=== PATIENT | female | born 1965 | race Two or more races ===

== ENCOUNTER 2024-09-08 14:25 | Inpatient (IN) | payer MEDICAID, OTHER ==
[~2024-09-08] VITALS: Ht 165.1 cm; Wt 70.6 kg
--- NOTE | 2024-09-08 15:08 | ED.PDOC ---
GI ASSESSMENT HPI Comments 59 y.o female with PMHx of HTN and DM, presents to the ED for a chief complaint of nausea, vomiting, diarrhea, chills and abdominal pain that started 1 week ago. Patient reports pain presents s/p eating and diffused throughout her abdomen. Patient also reports multiple episodes of diarrhea with no bleeding noted. She denies fever, dysuria, hematuria. Chief Complaint: Nausea/Vomiting Time Seen by MD: 14:55 Primary Care Provider: UNKNOWN Reviewed Notes: Nurses Notes, Medications, Allergies Allergies: Coded Allergies: NO KNOWN ALLERGIES (Unverified , 09/08/24) Information Source: Patient Mode of Arrival: Ambulatory Timing: Weeks (1) Duration: Since onset Quality: Sharp Vomitus: Hard Stool: Loose Severity: Moderate Recent: None Recent Hx of: None Pain Location: Diffuse Modifying Factors: Nothing Associated sign and symptoms: Nausea, Vomiting, Diarrhea, Abdominal Pain Past Medical History PAST MEDICAL HISTORY: Cancer, DM, HTN Surgical History: Cholecystectomy, , Tubal Ligation Surgical History (Other): back Family History Family History: Family hx of DM, Family hx of Cancer Social History Smoker: Non-Smoker Alcohol: Occasionally Drugs: Denies Drug Use Lives In: Home Constitutional: reports: chills; denies: diaphoresis, fatigue, fever, malaise, sweats, weakness, others EENTM: denies: blurred vision, double vision, ear bleeding, ear discharge, ear drainage, ear pain, ear ringing, eye pain, eye redness, hearing loss, mouth pain, mouth swelling, nasal discharge, nose bleeding, nose congestion, nose pain, photophobia, tearing, throat pain, throat swelling, voice changes, others Respiratory: denies: cough, hemoptysis, orthopnea, SOB at rest, shortness of breath, SOB with excertion, stridor, wheezing, others Cardiovascular: denies: chest pain, dizzy spells, diaphoresis, Dyspnea on exertion, edema, irregular heart beat, left arm pain, lightheadedness, palpitations, PND, syncope, others Gastrointestinal: reports: abdominal pain, diarrhea, nausea, vomiting; denies: abdomen distended, blood streaked bowels, constipated, dysphagia, difficulty sw allowing, hematemesis, melena, poor appetite, poor fluid intake, rectal bleeding, rectal pain, others Genitourinary: denies: abnormal vagina bleeding, burning, dyspareunia, dysuria, flank pain, frequency, hematuria, incontinence, pain, , vagina discharge, urgency, others Neurological: denies: dizziness, fainting, headache, left sided numbness, left sided weakness, numbness, paresthesia, pre-existing deficit, right sided numbness, right sided weakness, seizure, speech problems, tingling, tremors, weakness, others Musculoskeletal: denies: back pain, gout, joint pain, joint swelling, muscle pain, muscle stiffness, neck pain, others Integumetry: denies: bruises, change in color, change in hair/nails, dryness, laceration, lesions, lumps, rash, wounds, others Allergic/Immunocompromised: denies: Difficulty Healing, Frequent Infections, Hives, Itching, others Hematologic/Lymphatic: denies: anemia, blood clots, easy bleeding, easy bruising, swollen glands, others Endocrine: denies: excessive hunger, excessive sweating, excessive thirst, excessive urination, flushing, intolerance to cold, intolerance to heat, u nexplained weight gain, unexplained weight loss, others Psychiatric: denies: anxiety, bipolar disorder, depression, hopeless, panic disorder, schizophrenia, sleepless, suicidal, others All Other Systems: Reviewed and Negative Physical Exam General Appearance: Moderate Distress HEENT: Normal ENT Inspection, Pharynx Normal, TMs Normal Neck: Full Range of Motion, Non-Tender, Normal, Normal Inspection Respiratory: Chest Non-Tender, Lungs Clear, No Accessory Muscle Use, No Respiratory Distress, Normal Breath Sounds Cardiovascular: No Edema, No JVD, No Murmur, No Gallop, Normal Peripheral Pulses, Regular Rate/Rhythm Breast Exam: Deferred Gastrointestinal: Diffuse, No Organomegaly, No Pulsatile Mass, Normal Bowel Sounds, Soft, Tenderness Genitalia: Deferred Pelvic: Deferred Rectal: Deferred Extremities: No calf tenderness, Normal capillary refill, No pedal edema Musculoskeletal : Apperance: Normal Neurologic: Alert, 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 Was a procedure done?: No GI differential Dx Differential Diagnosis: Esophagitis, Gastroenteritis, Electrolyte Imbalance, Food Poisoning, Viral X-Ray, Labs, Meds, VS Vital Signs Date Time Temp Pulse Resp B/P (MAP) Pulse Ox O2 Delivery O2 Flow Rate FiO2 09/08/24 16:48 98.3 62 18 138/72 (94) 98 98.3 09/08/24 16:48 62 18 98 Room Air 09/08/24 14:38 97.6 74 16 153/55 (87) 99 97.6 Lab Test 09/08/24 15:08 09/08/24 14:45 Range/Units White Blood Count 6.0 4.4-10.8 10^3/uL Red Blood Count 4.80 4.0-5.20 10^6/uL Hemoglobin 14.9 12.2-16.2 g/dL Hematocrit 42.6 36.0-46.0 % Mean Corpuscular Volume 88.7 80.0-100.0 fL Mean Corpuscular Hemoglobin 31.0 28.0-32.0 pg Mean Corpuscular Hemoglobin Concent 34.9 32.0-36.0 g/dL Red Cell Distribution Width 13.0 11.8-14.3 % Platelet Count 215 140-450 10^3/uL Mean Platelet Volume 9.0 6.9-10.8 fL Neutrophils (%) (Auto) 58.5 37.0-80.0 % Lymphocytes (%) (Auto) 32.9 10.0-50.0 % Monocytes (%) (Auto) 6.0 0.0-12.0 % Eosinophils (%) (Auto) 1.7 0.0-7.0 % Basophils (%) (Auto) 0.9 0.0-2.0 % Neutrophils # (Auto) 3.5 1.6-8.6 10 ^3/uL Lymphocytes # (Auto) 2.0 0.4-5.4 10 ^3/uL Monocytes # (Auto) 0.4 0-1.3 10 ^3/uL Eosinophils # (Auto) 0.1 0-0.8 10 ^3/uL Basophils # (Auto) 0.1 0-0.2 10 ^3/uL Nucleated Red Blood Cells 0.1 % Sodium Level 140 136-145 mmol/L Potassium Level 3.8 3.5-5.1 mmol/L Chloride Level 108 H 98-107 mmol/L Carbon Dioxide Level 27 20-31 mmol/L Anion Gap 5 5-15 Blood Urea Nitrogen 7 L 9-23 mg/dL Creatinine 0.72 0.550-1.02 mg/dL Glomerular Filtration Rate Calc 96 >90 mL/min BUN/Creatinine Ratio 9.7 L 10.0-20.0 Serum Glucose 135 H 74-106 mg/dL Calcium Level 9.6 8.7-10.4 mg/dL Total Bilirubin 0.3 0.2-1.0 mg/dL Aspartate Amino Transferase (AST) 20 13-40 U/L Alanine Aminotransferase (ALT) 14 7-40 U/L Alkaline Phosphatase 88 46-116 U/L Total Protein 6.7 5.7-8.2 g/dL Albumin 4.3 3.2-4.8 g/dL Urine Color Yellow Yellow Urine Clarity Turbid H Clear Urine pH 6.0 5.0-9.0 Urine Specific [place] 1.020 1.001-1.035 Urine Protein Negative Negative Urine Ketones Negative Negative Urine Blood Trace H Negative /uL Urine Nitrite Negative Negative Urine Bilirubin Negative Negative Urine Urobilinogen 4 H Negative mg/dL Urine Leukocyte Esterase Trace Negative /uL Urine RBC 8 0 - 4 /hpf Urine Microscopic WBC 6 H 0-5 /HPF Urine Squamous Epithelial Cells Mod <5 /hpf Urine Bacteria Few H None Seen /hpf Urine Glucose Normal Normal mg/dL Exam: CT CT AB PEL WO CON-NO ORAL OR IV. IMPRESSION: No acute abdominal or pelvic findings. The patient's urine test is positive for some white cells The patient's CBC is within normal limits The chemistry panel is within normal limits At this time, the patient is being admitted An IV Hep-Lock was established The patient is being given morphine 4 mg IV push for the pain The patient is given Zofran 4 mg IV push for the nausea Images Reviewed?: Images reviewed and evaluated by me Time of 1ST Reevaluation: 15:02 Reevaluation 1ST: Unchanged Patient Education/Counseling: Diagnosis, Treatment, Prognosis Family Education/Counseling: No Family Present SEPSIS Sepsis Screen Date sepsis recognized/suspect: Sep 08, 2024 Time Sepsis recognized/suspect: 1423 Recent Procedure: No On Antibiotic Therapy: No Respiratory Rate >20: No Heart Rate >90: No Temp<36 C (96.8 F) or >38.3 C: No SBP <90 or MAP <65 mmHG: No New Acute Mental Status Change: No Is the patient on CPAP, BIPAP,: No Physician Orders Heplock Iv (09/08/24 14:58) Ct Ab Pel Wo Con-No Oral Or Iv (09/08/24 14:58) Vital Signs Date Time Temp Pulse Resp B/P (MAP) Pulse Ox O2 Delivery O2 Flow Rate FiO2 09/08/24 16:48 98.3 62 18 138/72 (94) 98 98.3 09/08/24 16:48 62 18 98 Room Air 09/08/24 14:38 97.6 74 16 153/55 (87) 99 97.6 Laboratory Tests Test 09/08/24 15:08 White Blood Count 6.0 10^3/uL (4.4-10.8) Departure 1 Departure Time of Disposition: 18:47 Impression: Primary Impression: Intractable abdominal pain Disposition: ADMITTED INPATIENT Admit to: Med Surg Condition: Fair Critical Care Note Critical Care Time?: No Stability Stability form required: Yes Unstable for transfer: ED Physician Assesment (Clinical assesment) I personally scribed for JULIUS LEUNG MD ([email or web address]) on 09/08/24 at 15:08. El ectronically submitted by Claribel Rivas ([facility]). I personally scribed for JULIUS LEUNG MD ([email or web address]) on 09/08/24 at 16:47. Lynne ctronically submitted by Claribel Rivas ([facility]). JULIUS LUENG MD Sep 08, 2024 15:08
[2024-09-08 15:15] LABS: Hematocrit 42.6 % (36.0-46.0); Hemoglobin 14.9 g/dL (12.2-16.2); Mean Corpuscular Hemoglobin 31.0 pg (28.0-32.0); Mean Corpuscular Volume 88.7 fL (80.0-100.0); Nucleated Red Blood Cells % 0.1 %
[2024-09-08 15:31] LABS: Urine Protein, UAD Negative (Negative)
[2024-09-08 15:33] LABS: Alanine Aminotransferase 14 U/L (7-40); Albumin 4.3 g/dL (3.2-4.8); Alkaline Phosphatase 88 U/L (46-116); Anion Gap 5 (5-15); BUN/Creatinine Ratio 9.7 (10.0-20.0); Bilirubin, Total 0.3 mg/dL (0.2-1.0); Calcium 9.6 mg/dL (8.7-10.4); Carbon Dioxide 27 mmol/L (20-31); Potassium 3.8 mmol/L (3.5-5.1); Sodium 140 mmol/L (136-145); Total Protein 6.7 g/dL (5.7-8.2)
[2024-09-08 15:34] LABS: Blood Urea Nitrogen 7 mg/dL (9-23); Chloride 108 mmol/L (98-107); Glucose 135 mg/dL (74-106)
--- NOTE | 2024-09-08 16:24 | DVH ---
Exam: CT CT AB PEL WO CON-NO ORAL OR IV History: pain Comparison Study: None Technique: Multidetector spiral CT of the abdomen was performed from lung bases to pubic symphysis. I maging was performed without IV contrast. Axial, coronal and sagittal multiplanar reformats were obta ined from the axial data set by the technologist. Radiation Dose : 1. Abdomen/Pelvis: CTDIvol 7.6 mGy, DLP 378.2 mGy*cm. Findings: Evaluation of solid organs is limited due to lack of intravenous contrast use. Lung Bases: No acute or significant lung base finding. Normal heart size. No pleural or pericardial effusion. Liver: Borderline hepatomegaly. Gallbladder and Biliary Tree: Unremarkable Spleen: Unremarkable Pancreas: The pancreas is grossly normal in appearance. Adrenal Glands: Unremarkable Kidneys: Kidneys are grossly normal without calculi or hydronephrosis. Bladder: Grossly unremarkable for degree of distention. Bowel: The stomach is grossly normal in appearance. Diverticulosis. Normal appendix is visualized in the right lower quadrant without findings of appendicitis. Ascites: Absent Lymphadenopathy: No mesenteric, retroperitoneal or periportal lymphadenopathy. Abdominal Wall and Mesentery: Unremarkable. Vasculature: The visualized abdominal aorta is normal in size and caliber. Evaluation of abdominal a nd pelvic vessels is limited due to lack of intravenous contrast. Pelvic Organs: Unremarkable Musculoskeletal: No aggressive focal bony lesions, acute fractures or dislocation. Degenerative degroot es of the spine. IMPRESSION: No acute abdominal or pelvic findings. Radiation optimization: All CT scans at this facility use at least one of these dose optimization nish hniques: automated exposure control mA and/or kV adjustment per patient size (includes targeted exam s where dose is matched to clinical indication) or iterative reconstruction.
[2024-09-08] MEDS ORDERED: LOPERAMIDE HCL 2 MG CAP/TAB PO PRN (19:15)
[2024-09-08] MEDS ORDERED: MORPHINE SULFATE INJ 2 MG/ml SYRG IV PRN (19:15)
[2024-09-08] MEDS ORDERED: ONDANSETRON HCL 4 MG/2 ML VIAL IV PRN ×2 (19:15)
[2024-09-08] MEDS ORDERED: ACETAMINOPHEN 325 MG TAB PO PRN (19:15)
[2024-09-08] MEDS ORDERED: HYDROcodone-ACET 5/325MG TAB PO PRN (19:15)
[2024-09-08] MEDS ORDERED: DEXTROSE (50%) 50ML SYRG IV PRN (19:15)
--- NOTE | 2024-09-08 21:45 | DVHHP2 ---
History of Present Illness Reason for Visit: Abdominal pain History of Present Illness 59-year-old female presents for evaluation of abdominal pain. Patient endorses a one-week history of epigastric/center cramping that has gotten worse over the past couple of days. She reports nausea with vomiting and occasional episodes of diarrhea. She states symptoms becomes worse when eating. No other acute complaints reported. Past Medical History Hypertension, diabetes mellitus, cancer Past Surgical History , tubal ligation, cholecystectomy Family History Diabetes mellitus and cancer Smoke: No ALCOHOL: occassional Drugs: None Lives: with Family Review of Systems Review of Systems Review of systems are currently negative otherwise addressed in HPI. Allergies: Coded Allergies: NO KNOWN ALLERGIES (Unverified , 09/08/24) Medications Current Medications Medications Dose Ordered Sig/Shruthi Route Start Time Stop Time Status Last Admin Dose Admin Pantoprazole Sodium 40 mg DAILY IV 09/09/24 10:00 Loperamide HCl 2 mg PRN PRN PO 09/08/24 19:15 Atorvastatin Calcium 40 mg HS PO 09/08/24 22:00 Gabapentin 800 mg BID PO 09/08/24 22:00 Diagnostic Test (Pha) 1 strip Q6HR 09/09/24 00:00 Insulin Human Regular Q6HR SC 09/09/24 00:00 Dextrose 50 ml UD PRN IV 09/08/24 19:15 Acetaminophen/ Hydrocodone Bitart 1 tab Q4HP PRN PO 09/08/24 19:15 Ondansetron HCl 4 mg Q4HP PRN IV 09/08/24 19:15 Acetaminophen 650 mg Q6HP PRN PO 09/08/24 19:15 Morphine Sulfate 2 mg Q6HPRN PRN IV 09/08/24 19:15 Exam Vital Signs Vital Signs Date Time Temp Pulse Resp B/P (MAP) Pulse Ox O2 Delivery O2 Flow Rate FiO2 09/08/24 16:48 98.3 62 18 138/72 (94) 98 98.3 09/08/24 16:48 Room Air Exam Gen: 59-year-old female in mild distress Skin: Warm, dry, normal color and texture, no rash. HEENT: Normocephalic atraumatic, mucous membranes moist and pink. Neck: Cervical and supraclavicular nodes normal without enlargement, trachea is midline, thyroid gland is normal without masses. Pulmonary: Clear to auscultation and percussion bilaterally. Cardiac: Regular rate and rhythm. No murmur Abdomen: Soft, nontender, nondistended, bowel sounds present all 4 quadrants, no guarding, no rigidity, no organomegaly. Extremities: No cyanosis, clubbing, no edema Neuro: Cranial nerves II through XII grossly intact, normal affect and speech, no focal motor deficits. Labs/Xrays ORDERING PHYSICIAN: JULIUS LEUNG MD PROCEDURE(s): ABPL - CT AB PEL WO CON-NO ORAL OR IV REASON: pain ORDER NUMBER(s): [id number], ACCESSION NUMBER(s): [id number] Exam: CT CT AB PEL WO CON-NO ORAL OR IV History: pain Comparison Study: None Technique: Multidetector spiral CT of the abdomen was performed from lung bases to pubic symphysis. Imaging was performed without IV contrast. Axial, coronal and sagittal multiplanar reformats were obtained from the axial data set by the technologist. Radiation Dose : 1. Abdomen/Pelvis: CTDIvol 7.6 mGy, DLP 378.2 mGy*cm. Findings: Evaluation of solid organs is limited due to lack of intravenous contrast use. Lung Bases: No acute or significant lung base finding. Normal heart size. No pleural or pericardial effusion. Liver: Borderline hepatomegaly. Gallbladder and Biliary Tree: Unremarkable Spleen: Unremarkable Pancreas: The pancreas is grossly normal in appearance. Adrenal Glands: Unremarkable Kidneys: Kidneys are grossly normal without calculi or hydronephrosis. Bladder: Grossly unremarkable for degree of distention. Bowel: The stomach is grossly normal in appearance. Diverticulosis. Normal appendix is visualized in the right lower quadrant without findings of appendicitis. Ascites: Absent Lymphadenopathy: No mesenteric, retroperitoneal or periportal lymphadenopathy. Abdominal Wall and Mesentery: Unremarkable. Vasculature: The visualized abdominal aorta is normal in size and caliber. Evaluation of abdominal and pelvic vessels is limited due to lack of intravenous contrast. Pelvic Organs: Unremarkable Musculoskeletal: No aggressive focal bony lesions, acute fractures or dislocation. Degenerative changes of the spine. IMPRESSION: No acute abdominal or pelvic findings. Radiation optimization: All CT scans at this facility use at least one of these dose optimization techniques: automated exposure control mA and/or kV adjustment per patient size (includes targeted exams where dose is matched to clinical indication) or iterative reconstruction. ATED BY: JUAN JONES MD Labs Test 09/08/24 15:08 09/08/24 14:45 Range/Units White Blood Count 6.0 4.4-10.8 10^3/uL Red Blood Count 4.80 4.0-5.20 10^6/uL Hemoglobin 14.9 12.2-16.2 g/dL Hematocrit 42.6 36.0-46.0 % Mean Corpuscular Volume 88.7 80.0-100.0 fL Mean Corpuscular Hemoglobin 31.0 28.0-32.0 pg Mean Corpuscular Hemoglobin Concent 34.9 32.0-36.0 g/dL Red Cell Distribution Width 13.0 11.8-14.3 % Platelet Count 215 140-450 10^3/uL Mean Platelet Volume 9.0 6.9-10.8 fL Neutrophils (%) (Auto) 58.5 37.0-80.0 % Lymphocytes (%) (Auto) 32.9 10.0-50.0 % Monocytes (%) (Auto) 6.0 0.0-12.0 % Eosinophils (%) (Auto) 1.7 0.0-7.0 % Basophils (%) (Auto) 0.9 0.0-2.0 % Neutrophils # (Auto) 3.5 1.6-8.6 10 ^3/uL Lymphocytes # (Auto) 2.0 0.4-5.4 10 ^3/uL Monocytes # (Auto) 0.4 0-1.3 10 ^3/uL Eosinophils # (Auto) 0.1 0-0.8 10 ^3/uL Basophils # (Auto) 0.1 0-0.2 10 ^3/uL Nucleated Red Blood Cells 0.1 % Sodium Level 140 136-145 mmol/L Potassium Level 3.8 3.5-5.1 mmol/L Chloride Level 108 H 98-107 mmol/L Carbon Dioxide Level 27 20-31 mmol/L Anion Gap 5 5-15 Blood Urea Nitrogen 7 L 9-23 mg/dL Creatinine 0.72 0.550-1.02 mg/dL Glomerular Filtration Rate Calc 96 >90 mL/min BUN/Creatinine Ratio 9.7 L 10.0-20.0 Serum Glucose 135 H 74-106 mg/dL Calcium Level 9.6 8.7-10.4 mg/dL Total Bilirubin 0.3 0.2-1.0 mg/dL Aspartate Amino Transferase (AST) 20 13-40 U/L Alanine Aminotransferase (ALT) 14 7-40 U/L Alkaline Phosphatase 88 46-116 U/L Total Protein 6.7 5.7-8.2 g/dL Albumin 4.3 3.2-4.8 g/dL Urine Color Yellow Yellow Urine Clarity Turbid H Clear Urine pH 6.0 5.0-9.0 Urine Specific [place] 1.020 1.001-1.035 Urine Protein Negative Negative Urine Ketones Negative Negative Urine Blood Trace H Negative /uL Urine Nitrite Negative Negative Urine Bilirubin Negative Negative Urine Urobilinogen 4 H Negative mg/dL Urine Leukocyte Esterase Trace Negative /uL Urine RBC 8 0 - 4 /hpf Urine Microscopic WBC 6 H 0-5 /HPF Urine Squamous Epithelial Cells Mod <5 /hpf Urine Bacteria Few H None Seen /hpf Urine Glucose Normal Normal mg/dL SEPSIS Sepsis Screen Date sepsis recognized/suspect: Sep 08, 2024 Time Sepsis recognized/suspect: 1423 Recent Procedure: No On Antibiotic Therapy: No Respiratory Rate >20: No Heart Rate >90: No Temp<36 C (96.8 F) or >38.3 C: No SBP <90 or MAP <65 mmHG: No New Acute Mental Status Change: No Is the patient on CPAP, BIPAP,: No Physician Orders Heplock Iv (09/08/24 14:58) Ct Ab Pel Wo Con-No Oral Or Iv (09/08/24 14:58) Sodium Chloride 0.9% (09/08/24 19:15) Stool Bacterial Culture (09/08/24 19:05) Pantoprazole (Protonix) (09/09/24 10:00) Loperamide Capsule (Imodium Capsule) (09/08/24 19:15) Basic Metabolic Panel (09/09/24 04:00) Atorvastatin (Lipitor) (09/08/24 22:00) Gabapentin Capsule (Neurontin Capsule) (09/08/24 22:00) Glucose Blood (Accu-Chek Comfort Curve T (09/09/24 00:00) Insulin R (Human) (Insulin R) (09/09/24 00:00) Dextrose 50% Syringe (09/08/24 19:15) Admit (09/08/24 19:05) Hydrocodone-Acet 5/325mg Tab ([place] /32 (09/08/24 19:15) Ondansetron Hcl (Zofran) (09/08/24 19:15) Condition: Stable (09/08/24 19:05) Acetaminophen Tablet (Tylenol Tablet) (09/08/24 19:15) Clear Liq Diet (09/09/24 Breakfast) Bedrest With Bathroom Privileg (09/08/24 19:05) Morphine Sulfate Injection (09/08/24 19:15) Vital Signs Date Time Temp Pulse Resp B/P (MAP) Pulse Ox O2 Delivery O2 Flow Rate FiO2 09/08/24 16:48 98.3 62 18 138/72 (94) 98 98.3 09/08/24 16:48 62 18 98 Room Air 09/08/24 14:38 97.6 74 16 153/55 (87) 99 97.6 Laboratory Tests Test 09/08/24 15:08 White Blood Count 6.0 10^3/uL (4.4-10.8) Assessment/Plan Assessment/Plan Assessment Acute abdominal pain Possible gastroenteritis Diabetes mellitus Hypertension Plan Admit the patient to [facility] [place] to the hospitalist Clear liquid diet Maintenance IV fluids Pain management Continue treatment per orders. Plan discussed with: Patient My Orders Orders - RAN CAPUTO Procedure Category Date Status Time Sodium Chloride 0.9% PHA 09/08/24 In Process 19:15 Stool Bacterial DELVIN 09/08/24 Logged Culture 19:05 Pantoprazole PHA 09/09/24 In Process (Protonix) 10:00 Loperamide Capsule PHA 09/08/24 In Process (Imodium Capsule) 19:15 Basic Metabolic Panel LAB 09/09/24 Verified 04:00 Atorvastatin (Lipitor) PHA 09/08/24 In Process 22:00 Gabapentin Capsule PHA 09/08/24 In Process (Neurontin Capsule) 22:00 Glucose Blood PHA 09/09/24 In Process (Accu-Chek Comfort 00:00 Insulin R (Human) PHA 09/09/24 In Process (Insulin R) 00:00 Dextrose 50% Syringe PHA 09/08/24 In Process 19:15 Admit ADMIT 09/08/24 Transmitted 19:05 Hydrocodone-Acet PHA 09/08/24 In Process 5/325mg Tab ([place] 19:15 Ondansetron Hcl PHA 09/08/24 In Process (Zofran) 19:15 Condition: Stable PIO 09/08/24 In Process 19:05 Acetaminophen Tablet PHA 09/08/24 In Process (Tylenol Tablet) 19:15 Clear Liq Diet DIET 09/09/24 Transmitted Breakfast Bedrest With Bathroom PIO 09/08/24 In Process Privileg 19:05 Morphine Sulfate PHA 09/08/24 In Process Injection 19:15 Date of Service: Sep 08, 2024 Billing Provider: RAN CAPUTO Common Visit Codes: [id number] INP/OBS CARE (MOD) RAN CAPUTO Sep 08, 2024 21:45
[2024-09-08] MEDS: SODIUM CHLORIDE 0.9% 1,000 ML IV ONE (23:54)
[2024-09-09] VITALS (9 sets, daily range): BP systolic 111–141; BP diastolic 60–82; PULSE 57–75; RESP 14–18; TEMP 97.4–98.1; O2SAT 96–100
[2024-09-09] MEDS: ACCU-CHEK COMFORT CURVE STRIP VI SCH
[2024-09-09] MEDS: InsuLIN REG 1unit/0.01ml Soln (100units/ml) SC SCH
[2024-09-09] MEDS: ONDANSETRON HCL 4 MG/2 ML VIAL IV ONE (00:03)
[2024-09-09] MEDS: GABAPENTIN 400 MG CAP PO SCH (00:04)
[2024-09-09] MEDS: ATORVASTATIN 20 MG TAB PO SCH (00:04)
[2024-09-09] MEDS: SODIUM CHLORIDE 0.9% 1,000 ML IV ONE (00:30)
[2024-09-09] MEDS ORDERED: SIMV40TA18 PO (00:50)
[2024-09-09] MEDS ORDERED: GABA600T PO (00:50)
[2024-09-09] MEDS ORDERED: FAMO-68 PO (00:51)
[2024-09-09] MEDS ORDERED: TIZA4TAB9 PO (00:51)
[2024-09-09] MEDS ORDERED: OMEP20TA PO (00:51)
[2024-09-09] MEDS: PANTOPRAZOLE 40 MG/10 ML VIAL INJ IV SCH (09:51)
--- NOTE | 2024-09-09 11:57 | DVHPN2 ---
Progress Note Date Seen: Sep 09, 2024 Medical Necessity Reason Pt with a Central, PICC or Fol: No Subjective Patient reports: No new complaints Review of Systems: HEENT:Normal, CVS:Normal, RESPIRATORY:Normal, GI:Normal, :Normal, MSK:Normal, NEURO:Normal Objective vital signs Vital Sign Date Time Temp Pulse Resp B/P (MAP) Pulse Ox O2 Delivery O2 Flow Rate FiO2 09/09/24 09:00 97.4 63 16 137/71 (93) 97 97.4 09/09/24 00:25 Room Air* 0 21 Total Intake and Output 09/08/24 09/08/24 09/09/24 15:00 23:00 07:00 Intake Total 0 ml Balance 0 ml medications Current Medications Medications Dose Ordered Sig/Shruthi Route Start Time Stop Time Status Last Admin Dose Admin Pantoprazole Sodium 40 mg DAILY IV 09/09/24 10:00 09/09/24 09:51 40 MG Loperamide HCl 2 mg PRN PRN PO 09/08/24 19:15 Atorvastatin Calcium 40 mg HS PO 09/08/24 22:00 09/09/24 00:04 40 MG Gabapentin 800 mg BID PO 09/08/24 22:00 09/09/24 09:51 800 MG Diagnostic Test (Pha) 1 strip Q6HR 09/09/24 00:00 09/09/24 11:33 1 STRIP Insulin Human Regular Q6HR SC 09/09/24 00:00 Dextrose 50 ml UD PRN IV 09/08/24 19:15 Acetaminophen/ Hydrocodone Bitart 1 tab Q4HP PRN PO 09/08/24 19:15 Ondansetron HCl 4 mg Q4HP PRN IV 09/08/24 19:15 Acetaminophen 650 mg Q6HP PRN PO 09/08/24 19:15 Morphine Sulfate 2 mg Q6HPRN PRN IV 09/08/24 19:15 Examination: GENERAL:Normal, HEENT:Normal, NECK:Normal, LUNGS:Normal, CVS:Normal, ABDOMEN:Normal, MSK:Normal, SKIN:Normal, NEURO:Normal, :Normal laboratory and microbiology Laboratory Tests 09/08/24 15:08 Test 09/08/24 15:08 Range/Units Serum Glucose 135 H 74-106 mg/dL Problem List/Assessment/Plan Problem List/Assessment/Plan #1 abd pain ? acute ge: advance diet, ivf #2 back pain Plan discussed with: Patient Date of Service: Sep 09, 2024 Billing Provider: RAN THAKUR MD Common Visit Codes: [id number] INP/OBS CARE(HIGH) RAN THAKUR MD Sep 09, 2024 11:57
[2024-09-10 01:00] VITALS: BP 146/53; PULSE 60; RESP 14; TEMP 97.9; O2SAT 99
[2024-09-10 05:00] VITALS: BP 140/85; PULSE 59; RESP 14; TEMP 97.9; O2SAT 96
[2024-09-10 07:32] LABS: Anion Gap 9 (5-15); Carbon Dioxide 30 mmol/L (20-31); Chloride 104 mmol/L (98-107); Potassium 3.8 mmol/L (3.5-5.1); Sodium 143 mmol/L (136-145)
[2024-09-10 07:33] LABS: Calcium 9.6 mg/dL (8.7-10.4)
[2024-09-10 07:38] LABS: BUN/Creatinine Ratio 12.7 (10.0-20.0); Blood Urea Nitrogen 9 mg/dL (9-23); Glucose 92 mg/dL (74-106)
[2024-09-10 08:03] LABS: Hematocrit 42.9 % (36.0-46.0); Hemoglobin 14.7 g/dL (12.2-16.2); Mean Corpuscular Hemoglobin 29.9 pg (28.0-32.0); Mean Corpuscular Volume 87.1 fL (80.0-100.0); Nucleated Red Blood Cells % 0.1 %
[2024-09-10 08:39] VITALS: BP 144/79; PULSE 65; RESP 18; TEMP 98.4; O2SAT 98
--- NOTE | 2024-09-10 11:55 | DVHDS2 ---
Discharge Summary Date of Admission Sep 08, 2024 at 19:05 Date of Discharge: Sep 10, 2024 Labs/Diagnostic Data: Laboratory Results Test 09/10/24 06:05 09/09/24 11:31 09/08/24 15:08 09/08/24 14:45 White Blood Count 5.6 10^3/uL (4.4-10.8) Red Blood Count 4.92 10^6/uL (4.0-5.20) Hemoglobin 14.7 g/dL (12.2-16.2) Hematocrit 42.9 % (36.0-46.0) Mean Corpuscular Volume 87.1 fL (80.0-100.0) Mean Corpuscular Hemoglobin 29.9 pg (28.0-32.0) Mean Corpuscular Hemoglobin Concent 34.3 g/dL (32.0-36.0) Red Cell Distribution Width 12.9 % (11.8-14.3) Platelet Count 213 10^3/uL (140-450) Mean Platelet Volume 9.6 fL (6.9-10.8) Neutrophils (%) (Auto) 58.0 % (37.0-80.0) Lymphocytes (%) (Auto) 33.0 % (10.0-50.0) Monocytes (%) (Auto) 7.1 % (0.0-12.0) Eosinophils (%) (Auto) 1.3 % (0.0-7.0) Basophils (%) (Auto) 0.6 % (0.0-2.0) Neutrophils # (Auto) 3.3 10 ^3/uL (1.6-8.6) Lymphocytes # (Auto) 1.9 10 ^3/uL (0.4-5.4) Monocytes # (Auto) 0.4 10 ^3/uL (0-1.3) Eosinophils # (Auto) 0.1 10 ^3/uL (0-0.8) Basophils # (Auto) 0 10 ^3/uL (0-0.2) Nucleated Red Blood Cells 0.1 % Sodium Level 143 mmol/L (136-145) Potassium Level 3.8 mmol/L (3.5-5.1) Chloride Level 104 mmol/L (98-107) Carbon Dioxide Level 30 mmol/L (20-31) Anion Gap 9 (5-15) Blood Urea Nitrogen 9 mg/dL (9-23) Creatinine 0.71 mg/dL (0.550-1.02) Glomerular Filtration Rate Calc 97 mL/min (>90) BUN/Creatinine Ratio 12.7 (10.0-20.0) Serum Glucose 92 mg/dL (74-106) Calcium Level 9.6 mg/dL (8.7-10.4) POC Glucose 118 mg/dl (70-106) Total Bilirubin 0.3 mg/dL (0.2-1.0) Aspartate Amino Transferase (AST) 20 U/L (13-40) Alanine Aminotransferase (ALT) 14 U/L (7-40) Alkaline Phosphatase 88 U/L (46-116) Total Protein 6.7 g/dL (5.7-8.2) Albumin 4.3 g/dL (3.2-4.8) Urine Color Yellow (Yellow) Urine Clarity Turbid (Clear) Urine pH 6.0 (5.0-9.0) Urine Specific [place] 1.020 (1.001-1.035) Urine Protein Negative (Negative) Urine Ketones Negative (Negative) Urine Blood Trace /uL (Negative) Urine Nitrite Negative (Negative) Urine Bilirubin Negative (Negative) Urine Urobilinogen 4 mg/dL (Negative) Urine Leukocyte Esterase Trace /uL (Negative) Urine RBC 8 /hpf (0 - 4) Urine Microscopic WBC 6 /HPF (0-5) Urine Squamous Epithelial Cells Mod /hpf (<5) Urine Bacteria Few /hpf (None Seen) Urine Glucose Normal mg/dL (Normal) Other Laboratory Tests 09/10/24 06:05 Brief Hx & Hospital Course: see dictated note Condition at Discharge: Good Final Diagnosis/Problems List ABD PAIN Discharge Disposition: Home Discharge Instruct/Medications Diet: Regular Activity: No Restrictions, As Tolerated Follow Up/Referral: FU WITH PCP Medications: RESUME HOME MEDS Scheduled Tizanidine Hydrochloride (Zanaflex), 1 TAB PO QPM, (Reported) Miscellaneous Medications Famotidine (Gnp Acid Scarfer Operator Maximum), 40 MG PO, (Reported) Gabapentin (Neurontin), 800 MG PO, (Reported) Omeprazole (Gnp Omeprazole), 40 MG PO, (Reported) Simvastatin (Simvastatin), 40 MG PO, (Reported) Discharge Statement: "Patient was advised to return to the ER or call 911 if any headaches, dizziness, shortness of breath, chest pain, abdominal pain, bleeding, fevers, or worsening of medical condition. Patient was counseled about treatment plan, medications, possible side effects, patientverbalized understanding. All questions were answered to the best of my ability. This discharge took greater then 30 minutes in planning, reviewing documentation, counseling the patient, and discussing with other team members." ASSESSMENT ASSESSMENT Assessment ABD PAIN Date of Service: Sep 10, 2024 Billing Provider: RAN THAKUR MD Common Visit Codes: 91310-CAT/OBS DISCH DAY >30min RAN THAKUR MD Sep 10, 2024 11:55
--- NOTE | 2024-09-10 12:02 | DVHDS ---
DATE OF DISCHARGE: 09/10/2024 The patient is a 59-year-old lady who was admitted with complaints of abdominal pain, nausea, vomiting, and diarrhea. HOSPITAL COURSE: The patient had a CT of abdomen and pelvis that showed no acute findings. The patient's CBC was within normal limits. Her chemistries were also normal. The patient is now tolerating an oral diet and will be discharged home to resume her home medications and follow up with her primary in the next one to two weeks. FINAL DIAGNOSES: * Abdominal pain, likely acute gastroenteritis. * Back pain. Time spent in discharge planning and review of plan with the patient and nursing was 36 minutes. MD BUTCH Mckinnon/SHEREE TID: [id number] RECEIPT: [id number]
[2024-09-10 13:00] VITALS: BP 107/64; PULSE 60; RESP 14; TEMP 97.8; O2SAT 97
== END 2024-09-10 13:10 | disposition home or self-care (01) | DRG 249 ==
LOC: ER 14:25 → OVERFLOW 19:05 → WEST WING 19:09
PROVIDERS: ADMIT Internal Medicine; ATTEND Internal Medicine
DX: K52.9 Noninfective gastroenteritis and colitis, unspecified (principal); E11.9 Type 2 diabetes mellitus without complications; I10 Essential (primary) hypertension; Z83.3 Family history of diabetes mellitus; Z79.899 Other long term (current) drug therapy; Z90.49 Acquired absence of other specified parts of digestive tract; Z98.51 Tubal ligation status; Z98.891 History of uterine scar from previous surgery
CPT/HCPCS: 36415; 74176; 80048; 80053; 81001; 82962; 85025; G0378; J2405; J2470

== ENCOUNTER 2025-01-18 10:33 | Emergency (ER) | payer MEDICAID ==
[~2025-01-18] VITALS: Ht 165.1 cm; Wt 71.0 kg
[~2025-01-18 10:33] MED LIST: FAMO-68 PO; GABA600T PO; OMEP20TA PO; SIMV40TA18 PO; TIZA4TAB9 PO
--- NOTE | 2025-01-18 11:25 | DVH ---
CLINICAL HISTORY: PAIN INJURY TECHNIQUE: 3 views of the left shoulder were obtained. COMPARISON: None FINDINGS: No acute fracture or dislocation is seen. No soft tissue abnormality is evident. There are no significant degenerative changes. IMPRESSION: NO ACUTE RADIOGRAPHIC ABNORMALITY OF THE LEFT SHOULDER.
--- NOTE | 2025-01-18 11:27 | DVH ---
CLINICAL HISTORY: INJURY TECHNIQUE: 3 views of the left elbow were obtained. COMPARISON: None FINDINGS: There is an elbow joint effusion. There are degenerative changes at the elbow joint with osteophyte formation. No definite fracture line is seen. IMPRESSION: Elbow joint effusion, which may relate to occult radial head fracture or degenerative change. Suggest follow-up radiographs in 7-10 days to reassess.
--- NOTE | 2025-01-18 12:48 | ED.PDOC ---
History of Present Illness HPI Comments 59 y/o F presents with c/c of left shoulder and elbow pain s/p mechanical fall and injury. Patient reports on, initially, injuring her shoulder and elbow after falling 2x months ago. Patient reports on pain, temporarily, subsiding before returning, again, these past few days. Limited range of motion in lifting her left arm above her shoulder, currently. Patient denies any additional falls or injuries since initial incident. She denies any numbness, tingling, weakness, or further acute symptoms. Chief Complaint: Upper Extremity Time Seen by MD: 12:30 Primary Care Provider: UNKNOWN Reviewed Notes: Nurses Notes, Medications, Allergies Allergies: Coded Allergies: NO KNOWN ALLERGIES (Unverified , 09/08/24) Home Meds Reported Medications Omeprazole (Gnp Omeprazole) 20 Mg Tab, 40 MG PO, TAB 09/09/24 Famotidine (Gnp Acid Barrel Loader And Cleaner Maximum) 20 Mg Tab, 40 MG PO, TAB 09/09/24 Tizanidine Hydrochloride (Zanaflex) 4 Mg Tab, 1 TAB PO QPM, #30 TAB 09/09/24 Simvastatin (Simvastatin) 40 Mg Tab, 40 MG PO, TAB 09/09/24 Gabapentin (Neurontin) 600 Mg Tab, 800 MG PO, TAB 09/09/24 Information Source: Patient Mode of Arrival: Ambulatory Severity: Moderate Timing: Hours Duration: Since onset Prehospital treatment: None Past Medical History PAST MEDICAL HISTORY: Cancer, DM, HTN Surgical History: Cholecystectomy, , Tubal Ligation Family History Family History: Family hx of DM, Family hx of Cancer Social History Smoker: Non-Smoker Alcohol: Occasionally Drugs: Denies Drug Use Lives In: Home All Other Systems: Reviewed and Negative (Comprehensive review of systems are negative unless stated in HPI) Physical Exam General Appearance: Moderate Distress HEENT: Normal ENT Inspection, Pharynx Normal, TMs Normal Neck: Full Range of Motion, Non-Tender, Normal, Normal Inspection Respiratory: Chest Non-Tender, Lungs Clear, No Accessory Muscle Use, No Respiratory Distress, Normal Breath Sounds Cardiovascular: No Edema, No JVD, No Murmur, No Gallop, Normal Peripheral Pulses, Regular Rate/Rhythm Breast Exam: Deferred Gastrointestinal: No Organomegaly, Non Tender, No Pulsatile Mass, Normal Bowel Sounds, Soft Genitalia: Deferred Pelvic: Deferred Rectal: Deferred Extremities: No calf tenderness, Normal capillary refill, Normal inspection, Normal range of motion, Non-tender, No pedal edema Musculoskeletal : Apperance: Normal Neurologic: Alert, needleworker II-XII nml as Tested, No Motor Deficits, Normal Affect, Normal Mood, No Sensory Deficits Cerebellar Function: Normal Reflexes: Normal Skin: Dry, Normal Color, Warm Peripheral Pulses: 3+ Radial (R), 3+ Radial (L) Lymphatic: No Adenopathy Was a procedure done? Was a procedure done?: No Differential Dx Considerations may include: fractures, contusions, sprain, strain, among others X-Ray, Labs, Meds, VS Vital Signs Date Time Temp Pulse Resp B/P (MAP) Pulse Ox O2 Delivery O2 Flow Rate FiO2 01/18/25 10:35 97.8 76 18 114/89 97 97.8 [place] [address] Ph: [phone] DIAGNOSTIC IMAGING Diagnostic Imaging Report : [id number] Signed PATIENT: YOSSI GAXIOLA ACCT: [id number] UNIT: [id number] : 1965 LOC: ER ROOM / BED: / AGE / SEX: 59 / F ADM STATUS: REG ER SERVICE 1038 ORDERING PHYSICIAN: NETTA VELEZ MD PROCEDURE(s): LELB3 - L ELBOW 3 VIEW XRAY REASON: INJURY ORDER NUMBER(s): [id number], ACCESSION NUMBER(s): [id number] CLINICAL HISTORY: INJURY TECHNIQUE: 3 views of the left elbow were obtained. COMPARISON: None FINDINGS: There is an elbow joint effusion. There are degenerative changes at the elbow joint with osteophyte formation. No definite fracture line is seen. IMPRESSION: Elbow joint effusion, which may relate to occult radial head fracture or degenerative change. Suggest follow-up radiographs in 7-10 days to reassess. ATED BY: PREMA TREJO MD DICTATED DATE/TIME: 01/18/25 112 SIGNED BY: PREMA TREJO MD SIGNED DATE/TIME: 01/18/25 112 CC: [place] [address] Ph: [phone] DIAGNOSTIC IMAGING Diagnostic Imaging Report : [id number] Signed PATIENT: YOSSI GAXIOLA ACCT: [id number] UNIT: [id number] : 1965 LOC: ER ROOM / BED: / AGE / SEX: 59 / F ADM STATUS: REG ER SERVICE 1038 ORDERING PHYSICIAN: NETTA VELEZ MD PROCEDURE(s): LSHD2 - L SHOULDER 2+ VIEW XRAY REASON: PAIN INJURY ORDER NUMBER(s): [id number], ACCESSION NUMBER(s): [id number] CLINICAL HISTORY: PAIN INJURY TECHNIQUE: 3 views of the left shoulder were obtained. COMPARISON: None FINDINGS: No acute fracture or dislocation is seen. No soft tissue abnormality is evident. There are no significant degenerative changes. IMPRESSION: NO ACUTE RADIOGRAPHIC ABNORMALITY OF THE LEFT SHOULDER. ATED BY: PREMA TREJO MD DICTATED DATE/TIME: 01/18/251122 SIGNED BY: PREMA TREJO MD SIGNED DATE/TIME: 01/18/251122 CC: Patient alert. Came in because of shoulder pain. Chronic condition. Vitals stable. She also has a elbow pain. X-rays reviewed of the shoulder within normal limits pain X-rays reviewed of the elbow possibly had old fracture. Was placed in his splint. Was given prescription Motrin. Explained to the patient. Was told to follow up with her primary care physician. Was told to come back if there is any problem. Time of 1ST Reevaluation: 13:00 Reevaluation 1ST: Unchanged Patient Education/Counseling: Diagnosis, Treatment Family Education/Counseling: No Family Present SEPSIS Sepsis Screen Date sepsis recognized/suspect: Jan 18, 2025 Time Sepsis recognized/suspect: 1037 Recent Procedure: No On Antibiotic Therapy: No Respiratory Rate >20: No Heart Rate >90: No Temp<36 C (96.8 F) or >38.3 C: No SBP <90 or MAP <65 mmHG: No New Acute Mental Status Change: No Is the patient on CPAP, BIPAP,: No Physician Orders L Shoulder 2+ View Xray (01/18/25 10:38) L Elbow 3 View Xray (01/18/25 10:38) Splints (01/18/25 ) Hydrocodone-Acet 10/325mg Tab ([place] 10/ (01/18/25 15:15) Vital Signs Date Time Temp Pulse Resp B/P (MAP) Pulse Ox O2 Delivery O2 Flow Rate FiO2 01/18/25 10:35 97.8 76 18 114/89 97 97.8 Departure 1 Departure Time of Disposition: 15:13 Impression: Primary Impression: Elbow fracture, left Qualified Codes: S42.402D - Unspecified fracture of lower end of left humerus, subsequent encounter for fracture with routine healing Additional Impression: Musculoskeletal pain Disposition: 01 HOME / SELF CARE / HOMELESS Condition: Good e-Prescriptions Ibuprofen Micronized (MOTRIN TABLET) 600 Mg Tb 600 MG PO TID PRN for 3 Days, #9 TAB *Black box warning-NSAIDS can increase risk of [place] & hypertension, GI irritation, ulceration, bleed, perferation. Do not use post cardiac surgery. Use short duration/lowest effective dose. Prov: NETTA VELEZ MD 01/18/25 Discharged With: Self Critical Care Note Critical Care Time?: No Stability Stability form required: No Heart Score Heart Score: Heart Score Response (Comments) Value History N/A 0 EKG N/A 0 Age N/A 0 Risk Factors N/A 0 Troponin N/A 0 Total 0 I personally scribed for NETTA VELEZ MD ([email or web address]) on 01/18/25 at 12:48. Electronically submitted by Leonardo Solitario ([email or web address]). NETTA VELEZ MD Jan 18, 2025 12:48
[2025-01-18] MEDS ORDERED: IBU600T PO (15:15)
[2025-01-18] MEDS: HYDROcodone-ACET 10/325MG TAB PO ONE (15:41)
[2025-01-18 16:00] VITALS: BP 136/68; PULSE 84; RESP 20; TEMP 98; O2SAT 98
== END 2025-01-18 16:07 | disposition home or self-care (01) ==
LOC: ER 10:33
DX: S42.402A Unspecified fracture of lower end of left humerus, initial encounter for closed fracture (principal); Z90.49 Acquired absence of other specified parts of digestive tract; Z98.51 Tubal ligation status; E11.9 Type 2 diabetes mellitus without complications; I10 Essential (primary) hypertension; X58.XXXA Exposure to other specified factors, initial encounter; Y93.89 Activity, other specified; Y92.89 Other specified places as the place of occurrence of the external cause; Y99.8 Other external cause status
CPT/HCPCS: 29105; 73030; 73080